=== PATIENT | male | born 1990 | race Caucasian/White ===

== ENCOUNTER 2021-12-07 16:25 | Outpatient (REF) | payer MEDICAID, SELFPAY ==
[2021-12-07 21:05] LABS: HCT 47.9 % (40.0-50.0); HGB 16.8 g/dL (13.5-17.5); MCH 31.3 pg (27.0-33.0); MCHC 35.1 % (32.0-36.0); MCV 89 fL (80-95); MPV 9.3 fL (8.0-11.0); Platelet Count 285 10^3/uL (130-400); RBC 5.37 10^6/uL (4.36-5.78); RDW 11.7 % (11.8-14.1); RDW-SD 37.4 fL; WBC 9.51 10^3/uL (4.4-10.8)
[2021-12-07 21:15] LABS: ALT 49 U/L (16-63); AST 31 U/L (15-37); Albumin 4.3 g/dL (3.4-5.0); Alkaline Phosphatase 77 U/L (46-116); Anion Gap 10.1 mmol/L (3-11); BUN 18 mg/dL (7-18); Bilirubin, Total 0.7 mg/dL (0.2-1.0); CO2 27.9 mmol/L (21.0-32.0); CREATININE 1.3 mg/dL (0.70-1.30); Calcium 9.2 mg/dL (8.5-10.1); Calculated LDL 147 mg/dL (<100); Chloride 102 mmol/L (98-107); Cholesterol 257 mg/dL (<200); Glucose 102 mg/dL (74-106); HDL Cholesterol 36 mg/dL (40-60); Potassium 3.8 mmol/L (3.5-5.1); Sodium 140 mmol/L (136-145); Total Protein 7.5 g/dL (6.4-8.2); Triglyceride 372 mg/dL (<150)
[2021-12-07 21:31] LABS: Hemoglobin A1C 5.7 % (<5.7)
== END 2021-12-07 16:26 | disposition home or self-care (01) ==
LOC: NCHCN 16:25
PROVIDERS: Visit Provider Registered Nurse
DX: I10 Essential (primary) hypertension (principal); Z13.1 Encounter for screening for diabetes mellitus; Z83.3 Family history of diabetes mellitus; E66.8 Other obesity; Z68.34 Body mass index [BMI] 34.0-34.9, adult
CPT/HCPCS: 80053; 80061; 85027; 83036

== ENCOUNTER 2021-12-19 15:39 | Outpatient (REF) | payer MEDICAID, SELFPAY ==
[2021-12-19 17:06] LABS: Anion Gap 5.7 mmol/L (3-11); BUN 20 mg/dL (7-18); CO2 26.3 mmol/L (21.0-32.0); CREATININE 0.7 mg/dL (0.70-1.30); Calcium 9.2 mg/dL (8.5-10.1); Chloride 101 mmol/L (98-107); Glucose 112 mg/dL (74-106); Potassium 4.1 mmol/L (3.5-5.1); Sodium 133 mmol/L (136-145)
== END 2021-12-19 15:40 | disposition home or self-care (01) ==
LOC: NCHCN 15:39
PROVIDERS: Visit Provider Registered Nurse
DX: I10 Essential (primary) hypertension (principal); Z83.3 Family history of diabetes mellitus
CPT/HCPCS: 80048

== ENCOUNTER 2021-12-29 16:58 | Outpatient (REF) | payer MEDICAID, SELFPAY ==
[2021-12-29 20:48] LABS: Anion Gap 8.9 mmol/L (3-11); BUN 17 mg/dL (7-18); CO2 26.1 mmol/L (21.0-32.0); CREATININE 0.9 mg/dL (0.70-1.30); Calcium 9.2 mg/dL (8.5-10.1); Chloride 103 mmol/L (98-107); Glucose 174 mg/dL (74-106); Potassium 3.7 mmol/L (3.5-5.1); Sodium 138 mmol/L (136-145)
== END 2021-12-29 16:59 | disposition home or self-care (01) ==
LOC: NCHCN 16:58
PROVIDERS: Visit Provider Registered Nurse
DX: I10 Essential (primary) hypertension (principal); Z83.3 Family history of diabetes mellitus
CPT/HCPCS: 80048

== ENCOUNTER 2022-03-22 15:18 | Outpatient (REF) | payer MEDICAID, SELFPAY ==
[2022-03-22 15:43] LABS: Anion Gap 8.3 mmol/L (3-11); BUN 15 mg/dL (7-18); CO2 26.7 mmol/L (21.0-32.0); CREATININE 0.8 mg/dL (0.70-1.30); Calcium 9.4 mg/dL (8.5-10.1); Chloride 104 mmol/L (98-107); Glucose 164 mg/dL (74-106); Potassium 3.8 mmol/L (3.5-5.1); Sodium 139 mmol/L (136-145)
== END 2022-03-22 15:19 | disposition home or self-care (01) ==
LOC: NCHCN 15:18
PROVIDERS: Visit Provider Registered Nurse
DX: I10 Essential (primary) hypertension (principal)
CPT/HCPCS: 80048

== ENCOUNTER 2022-04-05 12:15 | Outpatient (REF) | payer MEDICAID, SELFPAY ==
[2022-04-05 14:45] LABS: Anion Gap 4.8 mmol/L (3-11); BUN 15 mg/dL (7-18); CO2 29.2 mmol/L (21.0-32.0); CREATININE 0.8 mg/dL (0.70-1.30); Calcium 9.1 mg/dL (8.5-10.1); Chloride 104 mmol/L (98-107); Glucose 100 mg/dL (74-106); Potassium 4.1 mmol/L (3.5-5.1); Sodium 138 mmol/L (136-145)
== END 2022-04-05 12:16 | disposition home or self-care (01) ==
LOC: NCHCN 12:15
PROVIDERS: Visit Provider Registered Nurse
DX: E87.1 Hypo-osmolality and hyponatremia (principal)
CPT/HCPCS: 80048

== ENCOUNTER 2022-06-21 15:59 | Outpatient (REF) | payer MEDICAID, SELFPAY ==
[2022-06-21 14:58] LABS: Anion Gap 7.8 mmol/L (3-11); BUN 18 mg/dL (7-18); CO2 27.2 mmol/L (21.0-32.0); CREATININE 0.8 mg/dL (0.70-1.30); Calcium 9.6 mg/dL (8.5-10.1); Chloride 104 mmol/L (98-107); Glucose 117 mg/dL (74-106); Potassium 3.6 mmol/L (3.5-5.1); Sodium 139 mmol/L (136-145)
== END 2022-06-21 16:00 | disposition home or self-care (01) ==
LOC: NCHCN 15:59
PROVIDERS: Visit Provider Registered Nurse
DX: I10 Essential (primary) hypertension (principal)
CPT/HCPCS: 80048

== ENCOUNTER 2022-08-13 10:05 | Outpatient (REF) | payer MEDICAID, SELFPAY ==
[2022-08-13 18:57] LABS: Anion Gap 9.7 mmol/L (3-11); BUN 19 mg/dL (7-18); CO2 26.3 mmol/L (21.0-32.0); CREATININE 0.8 mg/dL (0.70-1.30); Calcium 9.5 mg/dL (8.5-10.1); Chloride 106 mmol/L (98-107); Glucose 123 mg/dL (74-106); Sodium 142 mmol/L (136-145)
== END 2022-08-13 10:06 | disposition home or self-care (01) ==
LOC: NCHCN 10:05
PROVIDERS: Visit Provider Registered Nurse
DX: I10 Essential (primary) hypertension (principal)
CPT/HCPCS: 80048

== ENCOUNTER 2022-09-03 09:46 | Outpatient (REF) | payer MEDICAID, SELFPAY ==
[2022-09-03 16:14] LABS: Anion Gap 8.7 mmol/L (3-11); BUN 15 mg/dL (7-18); CO2 27.3 mmol/L (21.0-32.0); CREATININE 0.9 mg/dL (0.70-1.30); Calcium 9.2 mg/dL (8.5-10.1); Chloride 102 mmol/L (98-107); Estimated GFR 114.93 (mL/min/1.73m2); Glucose 188 mg/dL (74-106); Potassium 3.3 mmol/L (3.5-5.1); Sodium 138 mmol/L (136-145)
== END 2022-09-03 09:47 | disposition home or self-care (01) ==
LOC: NCHCN 09:46
PROVIDERS: PCP Registered Nurse; Visit Provider Registered Nurse
DX: I10 Essential (primary) hypertension (principal)
CPT/HCPCS: 80048

== ENCOUNTER 2022-11-01 16:05 | Outpatient (REF) | payer MEDICAID, SELFPAY ==
[2022-11-01 21:32] LABS: Potassium 3.8 mmol/L (3.5-5.1)
== END 2022-11-01 16:06 | disposition home or self-care (01) ==
LOC: NCHCN 16:05
PROVIDERS: PCP Registered Nurse; Visit Provider Registered Nurse
DX: E87.6 Hypokalemia (principal)
CPT/HCPCS: 84132

== ENCOUNTER 2023-10-08 11:25 | Outpatient (REF) | payer BC, SELFPAY ==
[2023-10-08 14:31] LABS: Anion Gap 5.4 mmol/L (3-11); BUN 16 mg/dL (7-18); CO2 27.6 mmol/L (21.0-32.0); CREATININE 0.8 mg/dL (0.70-1.30); Calcium 9.7 mg/dL (8.5-10.1); Chloride 104 mmol/L (98-107); Estimated GFR 118.36 (mL/min/1.73m2); Glucose 169 mg/dL (74-106); Potassium 3.5 mmol/L (3.5-5.1); Sodium 137 mmol/L (136-145)
== END 2023-10-08 11:26 | disposition home or self-care (01) ==
LOC: NCHCN 11:25
PROVIDERS: PCP Registered Nurse; Visit Provider Family Medicine
DX: I10 Essential (primary) hypertension (principal)
CPT/HCPCS: 80048

== ENCOUNTER 2024-04-07 16:39 | Outpatient (REF) | payer BC, SELFPAY ==
[2024-04-07 21:51] LABS: Anion Gap 9.8 mmol/L (3-11); BUN 22 mg/dL (7-18); CO2 28.2 mmol/L (21.0-32.0); CREATININE 0.9 mg/dL (0.70-1.30); Chloride 103 mmol/L (98-107); Estimated GFR 113.51 (mL/min/1.73m2); Glucose 168 mg/dL (74-106); Potassium 3.8 mmol/L (3.5-5.1); Sodium 141 mmol/L (136-145)
== END 2024-04-07 16:40 | disposition home or self-care (01) ==
LOC: NCHCN 16:39
PROVIDERS: PCP Registered Nurse; Visit Provider Family Medicine
DX: E87.6 Hypokalemia (principal)
CPT/HCPCS: 80048

== ENCOUNTER 2024-09-28 15:17 | Outpatient (REF) | payer MEDICAID, SELFPAY ==
[2024-09-29 19:06] LABS: COMMENT (LAB VIEW ONLY) 124.03 mg/dL; Microalb ug/mg Crea 16.7 ug/mg Cr
== END 2024-09-28 15:18 | disposition home or self-care (01) ==
LOC: NCHCN 15:17
PROVIDERS: PCP Registered Nurse; Visit Provider Family Medicine
DX: E11.9 Type 2 diabetes mellitus without complications (principal)
CPT/HCPCS: 82043; 82570